=== PATIENT | female | born 1985 | race Caucasian/White ===

== ENCOUNTER 2020-03-23 19:05 | Emergency (ER) | payer OTHER ==
[2020-03-23 19:10] VITALS: BMI 18.0
[2020-03-23] MEDS ORDERED: LACTATED RINGERS SOLUTION 1000 ML INFUS.BAG IV ONE (21:11)
[2020-03-23] MEDS ORDERED: METOCLOPRAMIDE HCL INJECTION 10 MG/2 ML VIAL IVPB ONE (21:12)
[2020-03-23] MEDS ORDERED: ACETAMINOPHEN 1000 MG/100 ML VIAL (NON FORMULARY) IVPB ONE (21:12)
[2020-03-23] MEDS ORDERED: ACETAMINOPHEN INJECTION 100 ML IVPB ONE (21:22)
[2020-03-23] MEDS ORDERED: METOCLOPRAMIDE HCL INJECTION 10 MG/2 ML VIAL ONE (21:23)
[2020-03-23 21:31] LABS: BASO % 0.7 % (0-2.0); EOS % 3.9 % (0-4.5); HEMATOCRIT 37.9 % (32.4-45.2); HEMOGLOBIN 12.6 GM/dL (10.7-15.3); LYMPH % 19.2 % (8-40); MCH 29.2 pg (25.7-33.7); MCHC 33.2 g/dl (32.0-36.0); MEAN PLT VOLUME 8.4 fl (7.5-11.1); MONO % 5.2 % (3.8-10.2); PLATELET COUNT 304 K/MM3 (134-434); RBC 4.31 M/mm3 (3.60-5.2); RDW 12.9 % (11.6-15.6); WHITE BLOOD COUNT 8.8 K/mm3 (4.0-10.0)
[2020-03-23 21:55] LABS: POTASSIUM 3.9 mmol/L (3.5-5.1)
[2020-03-23 21:58] LABS: ANISOCYTOSIS 1+; BLOOD UREA NITROGEN 10.2 mg/dL (7-18); CALCIUM 9.3 mg/dL (8.5-10.1); MACROCYTOSIS 0; PLATELET ESTIMATE NORMAL
[2020-03-23 21:59] LABS: ALBUMIN 4.3 g/dl (3.4-5.0)
[2020-03-23 22:01] LABS: CREATININE 0.8 mg/dL (0.55-1.3)
[2020-03-23 22:02] LABS: BILIRUBIN,TOTAL 0.5 mg/dL (0.2-1)
[2020-03-23 22:03] LABS: TOT PROT 7.4 g/dl (6.4-8.2)
[2020-03-23 22:04] VITALS: TEMP 98.7
[2020-03-23 23:00] VITALS: BP 97/56; PULSE 63
== END 2020-03-23 23:04 | disposition home or self-care (01) ==
LOC: JER 19:05
PROC: 3E0333Z Introduction of Anti-inflammatory into Peripheral Vein, Percutaneous Approach (ICD-10-PCS; principal; 2020-03-23)
PROC: 3E033GC Introduction of Other Therapeutic Substance into Peripheral Vein, Percutaneous Approach (ICD-10-PCS; 2020-03-23)
DX: G43.909 Migraine, unspecified, not intractable, without status migrainosus (principal)
CPT/HCPCS: 36415; 80053; 85025; 99284-25; J0131